=== PATIENT | female | born 1960 | race Two or more races ===

== ENCOUNTER 2017-03-21 10:05 | Emergency (ER) | payer BC ==
[2017-03-21 10:08] VITALS: TEMP 97.5; BMI 35.7
--- NOTE | 2017-03-21 10:46 | PDOC ---
History of Present Illness - General History Source: Patient, Old Records Exam Limitations: No Limitations <Coy Calderónfany - Last Filed: 03/21/17 15:08> - General History Source: Patient Exam Limitations: No Limitations - History of Present Illness Initial Comments: 03/21/17 11:35 The patient is a 56 year old female with a significant past medical history of diverticulosis, asthma (has home pumps), surgical history of hysterectomy, who presents to the ER with persistent nausea, vomiting, and diarrhea for one week and rash for two days. Patient states she went to [facility] seven days ago for vomiting and diarrhea where she had an abdominal CT done and was diagnosed with diverticulosis. Patient was given Zofran and flagyl to take home. She states that the diarrhea improved but she developed rash along the upper extremity, back, and pubic area. Patient states her vomiting is yellow in color with no blood. Patient also complains of associated epigastric pain but is not able to describe the pain. Patient admits the epigastric pain is alleviated while supine. Denies hematochezia, hematemesis Denies fever, chills, cough Denies lightheadedness Denies chest pain Social Hx: Denies cigarette use, alcohol use, or drug use <AfiaElizabeth - Last Filed: 03/21/17 15:16> - General Chief Complaint: Pain Stated Complaint: ABD PAIN Time Seen by Provider: 03/21/17 10:40 Past History - Past Medical History Asthma: Yes - Psycho/Social/Smoking Cessation Hx Suicidal Ideation: No Smoking History: Never smoked Hx Alcohol Use: No Drug/Substance Use Hx: No <Ashlyn Calderón - Last Filed: 03/21/17 15:08> <Elizabeth Oreilly - Last Filed: 03/21/17 15:16> - Past Medical History Allergies/Adverse Reactions: Allergies Allergy/AdvReac Type Severity Reaction Status Date / Time No Known Allergies Allergy Verified 03/21/17 10:08 Home Medications: Ambulatory Orders Levofloxacin [Levaquin -] 500 mg PO DAILY #14 tablet 03/21/17 Metronidazole [Flagyl -] 500 mg PO TID #21 tablet 03/21/17 Review of Systems - Review of Systems Able to Perform ROS?: Yes Comments:: 03/21/17 11:35 GENERAL/CONSTITUTIONAL: No fever or chills. No weakness. HEAD, EYES, EARS, NOSE AND THROAT: No change in vision. No ear pain or discharge. No sore throat. CARDIOVASCULAR: No chest pain or shortness of breath. RESPIRATORY: No cough, wheezing, or hemoptysis. GASTROINTESTINAL: (+) nausea (+) vomiting (+) diarrhea. No constipation. GENITOURINARY: No dysuria, frequency, or change in urination. MUSCULOSKELETAL: No joint or muscle swelling or pain. No neck or back pain. SKIN: (+) rash NEUROLOGIC: No headache, vertigo, loss of consciousness, or change in strength/ sensation. ENDOCRINE: No increased thirst. No abnormal weight change. HEMATOLOGIC/LYMPHATIC: No anemia, easy bleeding, or history of blood clots. ALLERGIC/IMMUNOLOGIC: No hives or skin allergy. <Elizabeth Oreilly - Last Filed: 03/21/17 15:16> *Physical Exam - Vital Signs Last Vital Signs Temp Pulse Resp BP Pulse Ox 97.5 F L 70 18 130/73 98 03/21/17 10:06 03/21/17 10:06 03/21/17 10:06 03/21/17 10:06 03/21/17 10:06 <Ashlyn Calderón - Last Filed: 03/21/17 15:08> - Vital Signs Last Vital Signs Temp Pulse Resp BP Pulse Ox 97.5 F L 70 18 130/73 98 03/21/17 10:06 03/21/17 10:06 03/21/17 10:06 03/21/17 10:06 03/21/17 10:06 - Physical Exam Comments: 03/21/17 11:37 GENERAL: Morbidly obese. Awake, alert, and fully oriented, in no acute distress HEAD: No signs of trauma EYES: PERRLA, EOMI, sclera anicteric, conjunctiva clear ENT: Auricles normal inspection, hearing grossly normal, nares patent, oropharynx clear without exudates. Moist mucosa NECK: Normal ROM, supple, no lymphadenopathy, JVD, or masses LUNGS: Breath sounds equal, clear to auscultation bilaterally. No wheezes, and no crackles HEART: Regular rate and rhythm, normal S1 and S2, no murmurs, rubs or gallops ABDOMEN: Tenderness to the LLQ and epigastric region. Soft, normoactive bowel sounds. No guarding, no rebound. No masses EXTREMITIES: Normal range of motion, no edema. No clubbing or cyanosis. No cords, erythema, or tenderness NEUROLOGICAL: Cranial nerves II through XII grossly intact. Normal speech, normal gait SKIN: Warm, Dry, normal turgor, no rashes or lesions noted. <Elizabeth Oreilly - Last Filed: 03/21/17 15:16> ED Treatment Course - LABORATORY CBC & Chemistry Diagram: 03/21/17 11:00 03/21/17 11:00 <Ashlyn Calderón - Last Filed: 03/21/17 15:08> - LABORATORY CBC & Chemistry Diagram: 03/21/17 11:00 03/21/17 11:00 <CatrinaElizabeth nobles - Last Filed: 03/21/17 15:16> Medical Decision Making - Medical Decision Making 03/21/17 10:47 56-year-old female with history of asthma and recent diagnosis of diverticulosis 8 days ago presents to the emergency Department with complaints of persistent epigastric pain, nausea, vomiting, diarrhea. The patient nearly completed a course of Flagyl. Differential diagnosis includes but is not limited to: Diverticulitis, pancreatitis, gallbladder disease, atypical presentation of ACS, dehydration, toxic/metabolic derangement. Plan: 1. Labs 2. EKG 3. Chest x-ray 4. IV fluids for hydration 5. Observe and reevaluate 03/21/17 15:09 Addendum: The labs are reviewed and are noted in the EMR. The white blood cell count is normal. The urine has, red cells and white cells. The CT scan of the abdomen and pelvis shows focal area of diverticulitis. The patient has been on a course of Flagyl therefore I will add Levaquin to the regimen. I will have the patient follow-up with her primary care physician and return to the ED if her symptoms persist, worsen, or new symptoms arise. <Ashlyn Calderón - Last Filed: 03/21/17 15:08> *DC/Admit/Observation/Transfer - Discharge Dispostion Admit: No - Attestations Physician Attestion: 03/21/17 10:49 I, Dr. Ashlyn Calderón, attest that the scribes documentation that appears above has been prepared under my direction and personally reviewed by me in its entirety. I confirmed that the note above accurately reflects all work, treatment, procedures, and medical decision-making performed by me. <Ashlyn Calderón - Last Filed: 03/21/17 15:08> - Attestations Scribe Attestion: 03/21/17 11:46 Documentation prepared by Elizabeth Oreilly, acting as medical physics professor for Ashlyn Calderón MD. <Elizabeth Oreilly - Last Filed: 03/21/17 15:16> Diagnosis at time of Disposition: Epigastric abdominal pain, Vomiting and diarrhea, Diverticulitis - Prescriptions Prescriptions: Metronidazole [Flagyl -] 500 mg PO TID #21 tablet Levofloxacin [Levaquin -] 500 mg PO DAILY #14 tablet - Referrals Referrals: Tiffany Snow [Primary Care Provider] - - Patient Instructions Printed Discharge Instructions: DI for Diverticulitis, DI for Urinary Tract Infection (UTI) Additional Instructions: You're being treated for diabetes to kill colitis as well as a urinary tract infection. Levaquin 500 mg 1 tablet daily for 2 weeks is being added to your antibiotic regimen. There will be an additional course of Flagyl 500 mg three times daily for 1 week. Follow-up with your primary care physician within the next week and return to the emergency department if your symptoms persist, worsen, or new symptoms arise.
[2017-03-21] MEDS ORDERED: SODIUM CHLORIDE 1,000 ML IV STA (10:47)
[2017-03-21 11:35] LABS: URINE APPEARANCE SLCLOUDY; URINE BILIRUBIN NEGATIVE (NEGATIVE); URINE COLOR AMBER; URINE GLUCOSE (UA) NEGATIVE (NEGATIVE); URINE KETONE NEGATIVE (NEGATIVE); URINE NITRITE NEGATIVE (NEGATIVE); URINE UROBILINOGEN 2.0 E.U/dl E.U./dl (0.2-1.0)
[2017-03-21 11:38] LABS: URINE BLOOD 1+ (NEGATIVE); URINE LEUK ESTERASE TRACE (NEGATIVE); URINE PROTEIN 1+ (NEGATIVE)
[2017-03-21 11:39] LABS: BASOPHIL 0.4 % (0-2.0); EOSINOPHIL 1.1 % (0-4.5); MCH 27.7 pg (25.7-33.7); MEAN CELL VOLUME 83.9 fl (80-96); MEAN PLT VOLUME 9.2 fl (7.5-11.1); NEUTROPHILS 65.9 % (42.8-82.8); PLATELET COUNT 240 K/MM3 (134-434); RDW 13.9 % (11.6-15.6); WHITE BLOOD COUNT 5.6 K/mm3 (4.0-10.0)
[2017-03-21 11:41] LABS: MAGNESIUM 2.4 mg/dL (1.8-2.4); PHOSPHOROUS 2.9 mg/dL (2.5-4.9)
[2017-03-21 11:42] LABS: ALBUMIN 3.2 g/dl (3.4-5.0); ANION GAP 6 (8-16); BILIRUBIN,TOTAL 0.4 mg/dL (0.2-1.0); CALCIUM 8.2 mg/dL (8.5-10.1); CO2 33 mmol/L (21-32); COCKROFT - GAULT 157.3435; CREATININE 0.6 mg/dL (0.55-1.02); GLUCOSE,RANDOM 92 mg/dL (74-106); SGOT/AST 42 U/L (15-37); SGPT/ALT 56 U/L (12-78); TOT PROT 6.3 g/dl (6.4-8.2)
[2017-03-21 11:45] LABS: ALK PHOS 128 U/L (45-117); TROPONIN I < 0.02 ng/ml (0.00-0.05)
[2017-03-21 11:46] LABS: URINE BACTERIA FEW /hpf (NONE SEEN); URINE HYALINE CAST 1 /lpf; URINE MUCUS MODERATE; URINE RBC 5 /hpf (0-3); URINE WBC 3 /hpf (3-5)
--- NOTE | 2017-03-21 12:59 | EKG ---
Test Reason : Blood Pressure : / mmHG Vent. Rate : 054 BPM Atrial Rate : 054 BPM P-R Int : 154 ms QRS Dur : 082 ms QT Int : 456 ms P-R-T Axes : 037 043 015 degrees QTc Int : 432 ms SINUS BRADYCARDIA OTHERWISE NORMAL ECG WHEN COMPARED WITH ECG OF 26-FEB-2011 09:31, NO SIGNIFICANT CHANGE WAS FOUND Confirmed by DENISE MACIAS MD ([id number]) on 03/21/2017 12:59:20 PM Referred By: Confirmed By:DENISE MACIAS MD
[2017-03-21] MEDS ORDERED: LEVOFLOXACIN 500 MG TABLET (FP) PO ONE (15:08)
[2017-03-21] MEDS ORDERED: LEVOFLOXACIN 250 MG TABLET (FP) ONE (15:22)
[2017-03-21 15:28] VITALS: BP 132/68; PULSE 75
== END 2017-03-21 15:28 | disposition home or self-care (01) ==
LOC: JER 10:05
PROC: 3E0337Z Introduction of Electrolytic and Water Balance Substance into Peripheral Vein, Percutaneous Approach (ICD-10-PCS; principal; 2017-03-21)
DX: K57.20 Diverticulitis of large intestine with perforation and abscess without bleeding (principal); N39.0 Urinary tract infection, site not specified; R21 Rash and other nonspecific skin eruption; J45.909 Unspecified asthma, uncomplicated
CPT/HCPCS: 36415; 71010-TC; 74176-TC; 80053; 81003; 81015; 82550; 83690; 83735; 84100; 84484; 85025; 93005; 93010; 96360; 99284-25

== ENCOUNTER 2018-10-03 19:11 | Emergency (ER) | payer BC ==
[2018-10-03 20:02] VITALS: BP 131/80; PULSE 72; TEMP 97.8; BMI 36.6
--- NOTE | 2018-10-03 20:03 | PDOC ---
Rapid Medical Evaluation Time Seen by Provider: 10/03/18 20:00 Medical Evaluation: Allergies Allergy/AdvReac Type Severity Reaction Status Date / Time No Known Allergies Allergy Verified 10/03/18 20:02 Vital Signs Temp Pulse Resp BP Pulse Ox 97.8 F 72 16 131/80 100 10/03/18 20:00 10/03/18 20:00 10/03/18 20:00 10/03/18 20:00 10/03/18 20:00 10/03/18 20:03 Patient c/o: cough, sob intermittent wheezing Patient on brief exam: coarse BS zaynab, vss Patient ordered for: cxr The patient will proceed to the ED Discharge Disposition - Diagnosis Cough - Referrals - Patient Instructions - Post Discharge Activity
[2018-10-03] MEDS ORDERED: DEXAMETHASONE LIQUID 0.5 MG/5 ML 240 ML BULK BOTTLE PO ONE (20:21)
--- NOTE | 2018-10-03 20:22 | PDOC ---
History of Present Illness - General Stated Complaint: cough Time Seen by Provider: 10/03/18 20:00 - History of Present Illness Initial Comments: 10/03/18 20:22 58-year-old female with a past medical history significant for asthma presents for 2 weeks of productive cough without systemic symptoms Past History - Past Medical History Allergies/Adverse Reactions: Allergies Allergy/AdvReac Type Severity Reaction Status Date / Time No Known Allergies Allergy Verified 10/03/18 20:02 Home Medications: Ambulatory Orders Albuterol Sulfate Inhaler - [Ventolin HFA Inhaler -] 1 - 2 inh PO Q4H #1 inhaler 10/03/18 Albuterol Sulfate Inhaler - [Ventolin Hfa Inhaler -] 1 - 2 inh PO QID 10/03/18 Fluticasone Propionate [Flovent Diskus] 100 mcg IH ASDIR 10/03/18 Asthma: Yes - Suicide/Smoking/Psychosocial Hx Smoking History: Never smoked Have you smoked in the past 12 months: No Information on smoking cessation initiated: No Hx Alcohol Use: No Drug/Substance Use Hx: No Review of Systems - Review of Systems Constitutional: No: Fever Respiratory: Yes: Cough, Shortness of Breath, Wheezing *Physical Exam - Vital Signs Last Vital Signs Temp Pulse Resp BP Pulse Ox 97.8 F 72 16 131/80 100 10/03/18 20:00 10/03/18 20:00 10/03/18 20:00 10/03/18 20:00 10/03/18 20:00 - Physical Exam Comments: 10/03/18 20:22 HEAD: NC/AT EYES: Conjuntiva clear Ears: Canals and TM's normal NOSE: No d/c THROAT: Moist mucous membrances, oral pharanx clear, uvula midline NECK: Supple without adenopathy CARDIAC: S1 S2 LUNGS: Mild bibasilar wheezing ABDOMEN: Soft NT ND MS: Full ROM in all joints without edema NEUROLOGIC: No gross sensory or motor deficits, NVID SKIN: Normal color and temperature no lesions or rashes Moderate Sedation - Procedure Monitoring Vital Signs: Procedure Monitoring Vital Signs Temperature 97.8 F 10/03/18 20:00 Pulse Rate 72 10/03/18 20:00 Respiratory Rate 16 10/03/18 20:00 Blood Pressure 131/80 10/03/18 20:00 O2 Sat by Pulse Oximetry (%) 100 10/03/18 20:00 Medical Decision Making - Medical Decision Making 10/03/18 21:46 No wheezing after for DuoNeb nebs and Decadron patient safe to be discharged home. Ferny sent to pharmacy pulmonology follow-up given *DC/Admit/Observation/Transfer Diagnosis at time of Disposition: Cough, Acute asthma exacerbation - Discharge Dispostion Disposition: HOME Condition at time of disposition: Stable - Referrals Referrals: Vega Orozco MD [Staff Physician] - - Patient Instructions Printed Discharge Instructions: DI for Asthma -- Adult Additional Instructions: Return to the emergency room should symptoms worsen or go unresolved. You are given a dose of steroids in the emergency room tonight he should not require any more steroids for at least a week. Ferny was sent here pharmacy. Please follow-up with pulmonology for further evaluation and treatment options. - Post Discharge Activity
[2018-10-03] MEDS: ALBUTEROL SO4 2.5/IPRATROPIUM 0.5 INH SOL 3 ML VIAL.NEB. NEB SCH ×4 (20:32→21:10)
[2018-10-03] MEDS ORDERED: DEXAMETHASONE SOD PHOSPHATE 10 MG/1 ML VIAL ONE (21:05)
[2018-10-03] MEDS ORDERED: ALBUTEROL SO4 2.5/IPRATROPIUM 0.5 INH SOL 3 ML VIAL.NEB. NEB ONE (21:06)
== END 2018-10-03 21:56 | disposition home or self-care (01) ==
LOC: JERFT 19:11
PROC: 3E0F7GC Introduction of Other Therapeutic Substance into Respiratory Tract, Via Natural or Artificial Opening (ICD-10-PCS; principal; 2018-10-03)
DX: J45.901 Unspecified asthma with (acute) exacerbation (principal)
CPT/HCPCS: 71046-TC-FY; 94640; 99281-25

== ENCOUNTER 2019-09-10 22:23 | Inpatient (IN) | payer BC, OTHER ==
[2019-09-10] MEDS ORDERED: ACETAMINOPHEN 1000 MG/100 ML VIAL (NON FORMULARY) IVPB ONE (22:43)
--- NOTE | 2019-09-10 22:46 | PDOC ---
History of Present Illness - General Chief Complaint: Injury Stated Complaint: FALL Time Seen by Provider: 09/10/19 22:31 History Source: Patient, Other (Son) Exam Limitations: No Limitations - History of Present Illness Initial Comments: 59 year old female with PMH asthma, left knee replacement (X4 years ago) presented to ED with son for left knee pain s/p injury today. Pt reported she was walking in the hallway, felt her left knee give out beneath her, causing her to lunge forward and hit her knee on the wall. She described a twisting motion as well. She denied head injury, LOC, vomiting, prodromal chest pain, prodromal shortness of breath, prodromal lightheadedness. She reported she feels the fall was secondary to her knee giving out. She denied neck pain, back pain, abdominal pain, chest pain, upper extremity pain. ROS General: denied fever, chills, generalized weakness. HEENT: denied sore throat, rhinorrhea, ear pain. Neck: denied neck pain. Cardiovascular: denied chest pain, palpitations, syncope, diaphoresis. Respiratory: denied shortness of breath, cough, sputum production, hemoptysis. Gastrointestinal: denied abdominal pain, nausea, vomiting, diarrhea, constipation, blood in stool. Genitourinary: denied dysuria, increased urinary frequency, hematuria, urinary incontinence, flank pain. Back: denied back pain. Musculoskeletal: admitted to knee pain. Neurological: denied headache, dizziness, numbness, tingling, weakness. Integumentary: denied rash, laceration, abrasion. Hematologic/Lymphatic: denied bruising or bleeding. PE Constitutional: Well-nourished, Well-developed, appearing stated age. obese. Airway: intact Breathing: bilateral breath sounds Circulation: 2+ carotid pulse B/L HEENT: head is normocephalic, atraumatic. No facial bones tenderness to palpation. No caputo sign. No raccoon eyes. EOMI. PERRLA. Neck: supple. Full ROM. no midline c-spine tenderness to palpation. No step offs. Cardiovascular: regular heart rhythm. no murmurs. no pericardial friction rub. Chest wall: no seatbelt sign. No tenderness to palpation of anterior chest wall. No deformity to anterior chest wall. Respiratory: clear to auscultation bilaterally. no crackles, rhonchi or wheezing. no stridor. Gastrointestinal: soft, nontender. normal bowel sounds. no rebound, guarding, masses. No ecchymoses. Back: no midline T-spine or L-spine tenderness to palpation. No step offs. Pelvis: lower extremities equal in length without external rotation. tenderness to palpation of left knee. tenderness to palpation of left hip. no tenderness to palpation of right hip or knee. no tenderness along left femur area. 2+ DSP bilaterally. Extremities: peripheral pulses intact. no lower extremity pitting edema. Neurological: CN 2-12 grossly intact. moves all four extremities. Psych: awake, alert, oriented x3. follows commands. answers questions appropriately. Past History - Past Medical History Allergies/Adverse Reactions: Allergies Allergy/AdvReac Type Severity Reaction Status Date / Time No Known Allergies Allergy Verified 10/03/18 20:02 Home Medications: Ambulatory Orders Albuterol Sulfate Inhaler - [Ventolin HFA Inhaler -] 1 - 2 inh PO Q4H #1 inhaler 10/03/18 Albuterol Sulfate Inhaler - [Ventolin Hfa Inhaler -] 1 - 2 inh PO QID 10/03/18 Fluticasone Propionate [Flovent Diskus] 100 mcg IH ASDIR 10/03/18 Asthma: Yes COPD: No - Psycho Social/Smoking Cessation Hx Smoking History: Unknown if ever smoked Have you smoked in the past 12 months: No Hx Alcohol Use: No Drug/Substance Use Hx: No *Physical Exam - Vital Signs Last Vital Signs Temp Pulse Resp BP Pulse Ox 98.5 F 66 18 147/71 100 09/10/19 22:30 09/10/19 22:30 09/10/19 22:30 09/10/19 22:30 09/10/19 22:30 ED Treatment Course - LABORATORY CBC & Chemistry Diagram: 09/10/19 22:57 09/10/19 22:57 - RADIOLOGY Radiology Studies Ordered: Category Date Time Status CHEST - PA [RAD] Stat Radiology 09/10/19 22:45 Ordered KNEE 3 POS-LEFT [RAD] Stat Radiology 09/10/19 22:45 Ordered PELVIS [RAD] Stat Radiology 09/10/19 22:45 Ordered Medical Decision Making - Medical Decision Making 59 year old female with above PMH presented to ED for left knee pain s/p mechanical injury. Initial Vital Signs Temp Pulse Resp BP Pulse Ox 98.5 F 66 18 147/71 100 09/10/19 22:30 09/10/19 22:30 09/10/19 22:30 09/10/19 22:30 09/10/19 22:30 Afebrile. No tachycardia. No tachypnea. Mild hypertension. No hypoxia on room air. Labs ordered: CBC, CMP, coags, T&S Imaging ordered: CXR, Pelvis XR, left knee XR Medications ordered: tylenol IV 09/10/19 23:34 CBC WBC 9.5 K/mm3 (4.0-10.0) 09/10/19 22:57 RBC 4.78 M/mm3 (3.60-5.2) 09/10/19 22:57 Hgb 13.7 GM/dL (10.7-15.3) 09/10/19 22:57 Hct 41.3 % (32.4-45.2) 09/10/19 22:57 MCV 86.4 fl (80-96) 09/10/19 22:57 MCH 28.6 pg (25.7-33.7) 09/10/19 22:57 MCHC 33.1 g/dl (32.0-36.0) 09/10/19 22:57 RDW 13.6 % (11.6-15.6) 09/10/19 22:57 Plt Count 239 K/MM3 (134-434) 09/10/19 22:57 MPV 9.5 fl (7.5-11.1) 09/10/19 22:57 Absolute Neuts (auto) 6.6 K/mm3 (1.5-8.0) 09/10/19 22:57 Neutrophils % 68.8 % (42.8-82.8) 09/10/19 22:57 Lymphocytes % 19.5 % (8-40) 09/10/19 22:57 Monocytes % 8.7 % (3.8-10.2) 09/10/19 22:57 Eosinophils % 2.4 % (0-4.5) D 09/10/19 22:57 Basophils % 0.6 % (0-2.0) 09/10/19 22:57 Nucleated RBC % 0 % (0-0) 09/10/19 22:57 No leukocytosis. No anemia. INR, PTT INR 1.03 (0.83-1.09) 09/10/19 22:57 09/10/19 23:45 CMP Sodium 143 mmol/L (136-145) 09/10/19 22:57 Potassium 4.2 mmol/L (3.5-5.1) 09/10/19 22:57 Chloride 106 mmol/L (98-107) 09/10/19 22:57 Carbon Dioxide 33 mmol/L (21-32) H 09/10/19 22:57 Anion Gap 4 MMOL/L (8-16) L 09/10/19 22:57 BUN 15.9 mg/dL (7-18) 09/10/19 22:57 Creatinine 0.9 mg/dL (0.55-1.3) 09/10/19 22:57 Est GFR (CKD-EPI)AfAm 79.98 09/10/19 22:57 Est GFR (CKD-EPI)NonAf 69.01 09/10/19 22:57 Random Glucose 122 mg/dL (74-106) H 09/10/19 22:57 Calcium 9.0 mg/dL (8.5-10.1) 09/10/19 22:57 Total Bilirubin 0.4 mg/dL (0.2-1) 09/10/19 22:57 AST 25 U/L (15-37) 09/10/19 22:57 ALT 31 U/L (13-61) 09/10/19 22:57 Alkaline Phosphatase 126 U/L (45-117) H 09/10/19 22:57 Total Protein 6.8 g/dl (6.4-8.2) 09/10/19 22:57 Albumin 3.6 g/dl (3.4-5.0) 09/10/19 22:57 09/10/19 23:49 XR shows distal femur fracture. Will send pt back to XR for femur XR and tib/fib XR. 09/10/19 23:59 Dr. Remberto camacho. Pt signed out to Dr. Holguin. Discharge - Discharge Information Problems reviewed: Yes Clinical Impression/Diagnosis: Knee pain - Follow up/Referral Referrals: Tiffany Snow [Primary Care Provider] - - Patient Discharge Instructions - Post Discharge Activity
--- NOTE | 2019-09-10 22:48 | PDOC ---
Attending Attestation - Resident Resident Name: TaylerOdalis - ED Attending Attestation I have performed the following: I have examined & evaluated the patient, The case was reviewed & discussed with the resident, I agree w/resident's findings & plan, Exceptions are as noted - HPI HPI: 09/10/19 22:47 59-year-old female brought in by ambulance after she had a mechanical fall this evening. She has complaint of left knee pain. HPI she was walking and her knee gave out and she fell and hit her leg into a wall She had left knee replacement in the past 09/10/19 22:52 - Physicial Exam PE: 09/10/19 22:48 Well-nourished well-developed 59-year-old female in moderate distress with left knee pain Head normocephalic atraumatic Neck no midline cervical vertebral tenderness Lungs clear to auscultation bilaterally CVS regular rate and rhythm S1-S2 Abdomen protuberant, nontender Extremities there is severe tenderness over left knee,a well healed surgical scar over left knee, no ankle deformity,no hip pain skin no lacerations neuro axox3 09/11/19 01:13 - Medical Decision Making 09/10/19 23:50 59 yo female with Left knee replacement in the past had a mechanical fall and hit her knee radiograph reveals distal femur fracture/intact hardwire 09/11/19 01:14 Impression distal femur fracture/prior Left knee replacement Dr. Sr is orthopedist and the patient will be admitted to [facility] pt placed in knee immobilizer
[2019-09-10] MEDS ORDERED: ACETAMINOPHEN INJECTION 100 ML IVPB ONE (23:02)
[2019-09-10 23:15] LABS: BASO % 0.6 % (0-2.0); EOS % 2.4 % (0-4.5); HEMATOCRIT 41.3 % (32.4-45.2); HEMOGLOBIN 13.7 GM/dL (10.7-15.3); LYMPH % 19.5 % (8-40); MCH 28.6 pg (25.7-33.7); MCHC 33.1 g/dl (32.0-36.0); MEAN CELL VOLUME 86.4 fl (80-96); MEAN PLT VOLUME 9.5 fl (7.5-11.1); MONO % 8.7 % (3.8-10.2); NEUT % 68.8 % (42.8-82.8); PLATELET COUNT 239 K/MM3 (134-434); RBC 4.78 M/mm3 (3.60-5.2); RDW 13.6 % (11.6-15.6); WHITE BLOOD COUNT 9.5 K/mm3 (4.0-10.0)
[2019-09-10 23:26] LABS: INR 1.03 (0.83-1.09); PROTHROMBIN TIME (PATIENT) 12.1 SEC (9.7-13.0)
[2019-09-10 23:43] LABS: ALBUMIN 3.6 g/dl (3.4-5.0); BILIRUBIN,TOTAL 0.4 mg/dL (0.2-1); BLOOD UREA NITROGEN 15.9 mg/dL (7-18); CREATININE 0.9 mg/dL (0.55-1.3); POTASSIUM 4.2 mmol/L (3.5-5.1); TOT PROT 6.8 g/dl (6.4-8.2)
--- NOTE | 2019-09-10 23:43 | PDOC ---
*Physical Exam - Vital Signs Last Vital Signs Temp Pulse Resp BP Pulse Ox 98.5 F 66 18 147/71 100 09/10/19 22:30 09/10/19 22:30 09/10/19 22:30 09/10/19 22:30 09/10/19 22:30 ED Treatment Course - LABORATORY CBC & Chemistry Diagram: 09/10/19 22:57 09/10/19 22:57 - ADDITIONAL ORDERS Additional order review: Laboratory Results 09/10/19 09/10/19 22:57 22:57 PT with INR 12.10 INR 1.03 PTT (Actin FS) 34.5 09/10/19 22:57 RBC 4.78 MCV 86.4 MCHC 33.1 RDW 13.6 MPV 9.5 Neutrophils % 68.8 Lymphocytes % 19.5 Monocytes % 8.7 Eosinophils % 2.4 D Basophils % 0.6 - Medications Given in the ED: ED Medications Discontinued Medications Generic Name Dose Route Start Last Admin Trade Name Marceloq PRN Reason Stop Dose Admin Acetaminophen 1,000 mg 09/10/19 22:43 09/10/19 23:00 Ofirmev Injection - IVPB 09/10/19 22:44 1,000 mg ONCE ONE Administration Medical Decision Making - Medical Decision Making 09/10/19 23:[address] Lester. Will f/u X rays. 09/10/19 23:50 Distal femur fracture on X ray. Will get add on tib/fib, femur X rays, give morphine. 09/10/19 23:55 L knee replacement performed 4 years ago at [facility] by Dr. Ramirez. 09/11/19 00:[address] Sr, states to put patient in knee immobilizer and admit her. Discharge - Discharge Information Problems reviewed: Yes Clinical Impression/Diagnosis: Knee pain, Femur fracture, left - Follow up/Referral Referrals: Tiffany Snow [Primary Care Provider] - - Patient Discharge Instructions - Post Discharge Activity
[2019-09-10] MEDS ORDERED: morphine CARPU-JECT 4 MG/1 ML DISP.SYRIN IVPUSH ONE (23:49)
[2019-09-11] MEDS ORDERED: morphine SULFATE 4 MG/ML VIAL ONE (00:52)
--- NOTE | 2019-09-11 01:29 | HP ---
Admitting History and Physical - Primary Care Physician PCP: Dr. Lainez - Admission Chief Complaint: s/p fall History of Present Illness: 59 year old female with PMH asthma, left knee replacement (X4 years ago) arrived to ED s/p fall with pain,swelling to left knee. According to son at bedside patient was walking in her hallway when " she felt her knee gave out" which caused patient to lunge forward and hit her knee against the wall. The knee bent in twisting motion. Patient denies hit her head, no LOC, headache, dizziness, syncope. Patient denies CP/SOB, N/V, neck pain, back pain, upper extremity pain. History Source: Patient, Family Member Limitations to Obtaining History: No Limitations - Past Medical History Pulmonary: Yes: Asthma - Past Surgical History Past Surgical History: Yes: Joint Replacement Additional Past Surgical History: left knee replacement (X4 years ago) - Smoking History Smoking history: Unknown if ever smoked Have you smoked in the past 12 months: No - Alcohol/Substance Use Hx Alcohol Use: No History of Substance Use: reports: None - Social History Usual Living Arrangement: Yes: Alone ADL: Independent History of Recent Travel: No Home Medications - Allergies Allergies/Adverse Reactions: Allergies Allergy/AdvReac Type Severity Reaction Status Date / Time No Known Allergies Allergy Verified 10/03/18 20:02 - Home Medications Home Medications: Ambulatory Orders Albuterol Sulfate Inhaler - [Ventolin HFA Inhaler -] 1 - 2 inh PO Q4H #1 inhaler 10/03/18 Fluticasone Propionate [Flovent Diskus] 100 mcg IH ASDIR 10/03/18 Family Medical History Family History: Denies Review of Systems - Review of Systems Constitutional: reports: No Symptoms Eyes: reports: No Symptoms HENT: reports: No Symptoms Neck: reports: No Symptoms Cardiovascular: reports: No Symptoms Respiratory: reports: No Symptoms Gastrointestinal: reports: No Symptoms Genitourinary: reports: No Symptoms Musculoskeletal: reports: Extremity Pain (left knee pain), Joint Pain, Joint Swelling (left knee) Neurological: reports: No Symptoms Endocrine: reports: No Symptoms Hematology/Lymphatic: reports: No Symptoms Psychiatric: reports: No Symptoms Physical Examination Vital Signs: Vital Signs Temperature 98.5 F 09/10/19 22:30 Pulse Rate 73 09/11/19 00:50 Respiratory Rate 18 09/10/19 22:30 Blood Pressure 130/70 09/11/19 00:50 O2 Sat by Pulse Oximetry (%) 100 09/10/19 22:30 Constitutional: Yes: Calm, Obese Eyes: Yes: Conjunctiva Clear, EOM Intact HENT: Yes: Atraumatic, Normocephalic Neck: Yes: Supple, Trachea Midline Cardiovascular: Yes: Regular Rate and Rhythm Respiratory: Yes: Regular, CTA Bilaterally Gastrointestinal: Yes: Normal Bowel Sounds, Soft Musculoskeletal: Yes: Joint Stiffness ( tenderness to palpation of left knee), Joint Swelling, Muscle Pain Edema: No Peripheral Pulses WNL: Yes Integumentary: Yes: WNL Neurological: Yes: Alert, Oriented Labs: CBC, BMP 09/10/19 22:57 09/10/19 22:57 Imaging - Results Chest X-ray: Report Reviewed (no acute consolidation noted) X-ray: Report Reviewed (XR shows distal femur fracture) Problem List - Problems (1) Femur fracture, left Code(s): S72.92XA - UNSP FRACTURE OF LEFT FEMUR, INIT ENCNTR FOR CLOSED FRACTURE (2) Status post fall Code(s): Z91.81 - HISTORY OF FALLING (3) Asthma Code(s): J45.909 - UNSPECIFIED ASTHMA, UNCOMPLICATED (4) Knee pain Code(s): M25.569 - PAIN IN UNSPECIFIED KNEE Assessment/Plan 59 year old female with PMH asthma, left knee replacement (X4 years ago) arrived to ED s/p fall with pain,swelling to left knee. Patient had L knee replacement performed 4 years ago at [facility] by Dr. Ramirez, xray done in ED shows distal femur fracture on X ray. # Left distal femur fracture #S/p mechanical fall with injury - XR shows distal femur fracture - in ED given morphine IV, IV tylenol - ED resident spoke with ortho, knee immobilizer in place - place on NPO, until ortho follow up - insert Zhang due to difficulty with mobility - pain management - continue with immobilizer, and elevate extremity - follow up Ortho in AM # Asthma - continue with nebs prn Diet: NPO DVT: Heaprin SQ Visit type - Emergency Visit Emergency Visit: Yes ED Registration Date: 09/11/19 Care time: The patient presented to the Emergency Department on the above date and was hospitalized for further evaluation of their emergent condition. - New Patient This patient is new to me today: Yes Date on this admission: 09/11/19 - Critical Care Critical Care patient: No
[2019-09-11] MEDS ORDERED: ALBUTEROL SO4 0.083% IH SOL 2.5 MG/3 ML VIAL.NEB. NEB PRN (01:43)
[2019-09-11] MEDS ORDERED: IPRATROPIUM BR 0.02% 0.5 MG/2.5 ML VIAL.NEB. NEB PRN (01:43)
[2019-09-11 02:23] LABS: EPI CELLS 3.8 /HPF (0-5/HPF); HYALINE CASTS 6 /lpf (0-8); URINE APPEARANCE CLEAR; URINE BACTERIA 3016.7 /hpf (NEGATIVE); URINE BILIRUBIN NEGATIVE (NEGATIVE); URINE COLOR YELLOW; URINE GLUCOSE (UA) NEGATIVE (NEGATIVE); URINE KETONE NEGATIVE (NEGATIVE); URINE LEUK ESTERASE NEGATIVE (NEGATIVE); URINE NITRITE POSITIVE (NEGATIVE); URINE PROTEIN NEGATIVE (NEGATIVE); URINE RBC 2 /hpf (0-4); URINE WBC 3 /hpf (0-5)
[2019-09-11] MEDS: SODIUM CHLORIDE 1,000 ML IV SCH ×2 (02:39→17:51)
[2019-09-11 03:02] VITALS: BMI 39.4
[2019-09-11] MEDS: HEPARIN NA (PORCINE) 5,000 UNITS/ML 1ML VIAL SQ SCH ×3 (05:37→22:00)
[2019-09-11 07:57] LABS: HEMATOCRIT 37.5 % (32.4-45.2); HEMOGLOBIN 12.4 GM/dL (10.7-15.3); MCH 28.6 pg (25.7-33.7); MCHC 33.1 g/dl (32.0-36.0); MEAN CELL VOLUME 86.4 fl (80-96); MEAN PLT VOLUME 9.5 fl (7.5-11.1); PLATELET COUNT 199 K/MM3 (134-434); RBC 4.34 M/mm3 (3.60-5.2); RDW 13.8 % (11.6-15.6); WHITE BLOOD COUNT 8.3 K/mm3 (4.0-10.0)
[2019-09-11 08:14] LABS: BLOOD UREA NITROGEN 13.2 mg/dL (7-18); CALCIUM 8.2 mg/dL (8.5-10.1); CREATININE 0.7 mg/dL (0.55-1.3)
[2019-09-11] MEDS: MORPHINE SULFATE 2 MG/ML VIAL IVPUSH PRN ×2 (08:37→23:31)
--- NOTE | 2019-09-11 11:12 | PN ---
Progress Note, Physician Chief Complaint: Left femur fracture History of Present Illness: Left femur Xray:Comminuted distal femoral fracture just proximal to the knee replacement. - Current Medication List Current Medications: Active Medications Albuterol Sulfate (Ventolin 0.083% Nebulizer Soln -) 1 amp NEB RQID PRN PRN Reason: SHORT OF BREATH/WHEEZING Heparin Sodium (Porcine) (Heparin -) 5,000 unit SQ TID [place] Last Admin: 09/11/19 05:37 Dose: 5,000 unit Sodium Chloride (Normal Saline -) 1,000 mls @ 75 mls/hr IV ASDIR [place] Last Admin: 09/11/19 02:39 Dose: 75 mls/hr Ceftriaxone Sodium 1 gm/ (Dextrose) 50 mls @ 200 mls/hr IVPB DAILY [facility]; Protocol Ipratropium [place] (Atrovent 0.02% Nebulizer -) 1 amp NEB RQID PRN PRN Reason: WHEEZING Morphine Sulfate (Morphine Sulfate) 1 mg IVPUSH Q6H PRN PRN Reason: PAIN LEVEL 6-10 Last Admin: 09/11/19 08:37 Dose: 1 mg - Objective Vital Signs: Vital Signs Temperature 98.8 F 09/11/19 09:43 Pulse Rate 69 09/11/19 09:43 Respiratory Rate 18 09/11/19 09:43 Blood Pressure 122/59 L 09/11/19 09:43 O2 Sat by Pulse Oximetry (%) 99 09/11/19 09:00 Constitutional: Yes: Well Nourished, No Distress, Calm Cardiovascular: Yes: Regular Rate and Rhythm Respiratory: Yes: Regular Gastrointestinal: Yes: Normal Bowel Sounds, Soft Genitourinary: Yes: WNL Musculoskeletal: Yes: WNL Extremities: Yes: WNL Edema: No Peripheral Pulses WNL: Yes Neurological: Yes: Alert, Oriented Psychiatric: Yes: Alert, Oriented Labs: CBC, BMP 09/11/19 07:15 09/11/19 07:15 INR, PTT INR 1.03 (0.83-1.09) 09/10/19 22:57 Problem List - Problems (1) UTI (urinary tract infection) Assessment/Plan: -UA+ Nitrites -UC pending -Start Rocephin -ID consult Problems reviewed: Yes Code(s): N39.0 - URINARY TRACT INFECTION, SITE NOT SPECIFIED (2) Femur fracture, left Assessment/Plan: -orthopedic consult -Left femur fracture:Comminuted distal femoral fracture just proximal to the knee replacement. Problems reviewed: Yes Code(s): S72.92XA - UNSP FRACTURE OF LEFT FEMUR, INIT ENCNTR FOR CLOSED FRACTURE Assessment/Plan see problem list Pt is medically stable for surgery with acceptable OR risks
[2019-09-11] MEDS ORDERED: cefTRIAXone SODIUM 1 GM VIAL ONE (11:15)
[2019-09-11] MEDS ORDERED: DEXTROSE 5%-WATER - 50 ML IVPB ONE (11:15)
[2019-09-11] MEDS: CEFTRIAXONE 1 GM in DEXTROSE 5%-WATER - 50 ML IVPB SCH (11:18)
--- NOTE | 2019-09-11 12:40 | PN ---
Progress Note (short form) - Note Progress Note: ID CONSULT DICTATED DISTAL L FEMUR FRACTURE UTI AWAIT C/S CONTINUE EMPIRIC [id number]
--- NOTE | 2019-09-11 13:43 | EKG ---
Test Reason : Blood Pressure : / mmHG Vent. Rate : 068 BPM Atrial Rate : 068 BPM P-R Int : 138 ms QRS Dur : 090 ms QT Int : 396 ms P-R-T Axes : 043 043 001 degrees QTc Int : 421 ms SINUS RHYTHM WITH MARKED SINUS ARRHYTHMIA NONSPECIFIC T WAVE ABNORMALITY ABNORMAL ECG WHEN COMPARED WITH ECG OF 21-MAR-2017 11:22, NO SIGNIFICANT CHANGE WAS FOUND Confirmed by MD Chalino, Lester ([id number]) on 09/11/2019 1:42:59 PM Referred By: Lino ACUÑA Confirmed By:Lester Allred MD
--- NOTE | 2019-09-11 15:12 | PN ---
Progress Note (short form) - Note Progress Note: Ortho Full consult to be dictated by Dr. Sr OR tomorrow for revision tkr distal femur replacement NPO after midnight
--- NOTE | 2019-09-11 15:57 | CONS ---
INFECTIOUS DISEASE CONSULTATION DATE OF CONSULTATION: DATE OF DICTATION: 09/11/2019 HISTORY: The patient is a 59-year-old female who was evaluated for possible urinary tract infection. She is status post left total knee replacement 4 years ago at [facility]. She reports that while ambulating in her home she experienced a mechanical fall resulting in trauma to her left lower extremity. She presented to the emergency room where an x-ray showed a comminuted distal left femur fracture prior to the total knee replacement. She was noted on initial evaluation to have pyuria. Concern was raised about possible occult infection, specifically a urinary tract infection, which may have precipitated her weakness and fall. She was empirically treated with ceftriaxone. At the present time, she is awake and responsive. She complains of left lower extremity pain. She has had some urinary frequency. Denies dysuria or hematuria. No complaints of suprapubic or flank pain. She has been afebrile with a normal white blood cell count. PAST MEDICAL HISTORY: Positive for asthma. PAST SURGICAL HISTORY: Status post left total knee replacement. ALLERGIES: No known allergies. LABORATORY DATA: White count 8.3, hematocrit 37.5, platelets 199, creatinine 0.7. Urinalysis 3 white cells. Blood and urine cultures are pending. PHYSICAL EXAMINATION: General: On physical examination, she is awake and alert. She is in moderate distress secondary to left lower extremity pain. Vital Signs: Temperature 98.4, blood pressure 132/74, pulse 72 regular, respirations 20 per minute. HEENT: Sclerae anicteric. Heart: Sounds S1, S2. Lungs: Clear bilaterally. Abdomen: Soft, obese, nontender. Extremities: The left lower extremity is immobilized in a splint. IMPRESSION: 1. Comminuted distal left femur fracture. 2. Urinary tract infection, possible sepsis secondary to urinary tract infection. 3. Status post left total knee replacement 4 years ago. PLAN: Await sepsis workup. Obtain blood cultures. Continue empiric ceftriaxone. Thank you for the kind referral. DAT WALTER M.D. [id number]
--- NOTE | 2019-09-11 18:05 | CONS ---
ORTHOPAEDIC CONSULTATION DATE OF CONSULTATION: 09/11/2019 HISTORY: Patient is a 59-year-old female about 5 years status post a left total knee replacement. Was doing well until she slipped and fell today. Complaining of severe pain in her left thigh and knee region. No significant past medical history. PHYSICAL EXAMINATION: On physical exam, she has a great deal of crepitus and swelling of her distal thigh with marked increased pain with any range of motion of the knee. Her calf is soft and nontender. She is neurovascularly intact. Intact sensation throughout. Good motion of her ankles and toes. Difficulty with hip motion with a great deal of pain in her femur but it appears to be within normal limits. X-rays of the femur and knee reveal a well-seated total knee replacement with a periprosthetic distal femur fracture a few centimeters above the femoral component but with comminution it appears going down toward the component. The tibial component and patellar component appear to be intact. IMPRESSION: Left distal femur periprosthetic fracture comminuted. Risks, benefits, and alternatives discussed with the patient in great detail. As the fracture is very distal and comminuted, I do not believe we can fixate this fracture appropriately. If, therefore, recommend the patient for a revision total knee replacement with a distal femoral replacement stem to bypass the fracture. Patient will be booked for this procedure tomorrow. Preoperative clearance will be obtained today. She will be n.p.o. past midnight tonight for her surgery tomorrow. SAVITA IRELAND M.D. [id number]
[2019-09-12] MEDS: SODIUM CHLORIDE 1,000 ML IV SCH ×2 (01:45→13:39)
[2019-09-12] MEDS: HEPARIN NA (PORCINE) 5,000 UNITS/ML 1ML VIAL SQ SCH ×3 (06:03→21:45)
[2019-09-12] MEDS ORDERED: ceFAZolin SODIUM 1 GM VIAL ONE ×2 (07:33→07:39)
[2019-09-12] MEDS ORDERED: TRANEXAMIC ACID 1000 MG/10 ML VIAL ONE (07:39)
[2019-09-12] MEDS ORDERED: VANCOMYCIN 1,000 MG VIAL (RESTRICTED TO ID ONLY) ONE (07:39)
[2019-09-12] MEDS ORDERED: ONDANSETRON 4 MG/2 ML VIAL ONE (07:39)
[2019-09-12] MEDS ORDERED: DEXAMETHASONE SOD PHOSPHATE 4 MG/1 ML VIAL ONE (07:39)
[2019-09-12] MEDS ORDERED: LIDOCAINE HCL/PF 2% SDV 5ML VIAL ONE (07:39)
[2019-09-12] MEDS ORDERED: MIDAZOLAM HCL 2 MG/2 ML SINGLE DOSE VIAL ONE ×4 (07:40→08:03)
[2019-09-12] MEDS ORDERED: PROPOFOL 20 ML ONE ×3 (07:40)
[2019-09-12] MEDS ORDERED: SUCCINYLCHOLINE CHLORIDE 200 MG/10 ML SYRINGE ONE (07:40)
[2019-09-12] MEDS ORDERED: BUPIVACAINE HCL/PF 0.5% (5 MG/ML) 30 ML VIAL IJ ONE ×2 (08:02→08:35)
[2019-09-12] MEDS ORDERED: BUPIVACAINE LIPOSOME/PF (EXPAREL) 266 MG/20 ML VIAL ONE (08:02)
[2019-09-12] MEDS ORDERED: ceFAZolin 2 GRAM PREMIX BAG IVPB ONE (08:40)
[2019-09-12] MEDS: CEFTRIAXONE 1 GM in DEXTROSE 5%-WATER - 50 ML IVPB SCH (10:05)
[2019-09-12] MEDS ORDERED: VANCOMYCIN 1,000 MG VIAL (RESTRICTED TO ID ONLY) IVPB ONE (10:15)
[2019-09-12] MEDS ORDERED: ceFAZolin SODIUM 1 GM VIAL IVPB ONE (10:43)
--- NOTE | 2019-09-12 11:06 | OP ---
Operative Note - Note: Operative Date: 09/12/19 ([facility]) Pre-Operative Diagnosis: left periprosthetic distal femur fx Operation: left revision tkr, distal femur replacement Post-Operative Diagnosis: Same as Pre-op Surgeon: Michoacano Sr Chief Radiologic Technologist: Ming Dao Anesthesiologist/SAP ABAP DEVELOPER: Manjit Porter Anesthesia: Spinal, Local Specimens Removed: bone fragments, TKR prosthesis Estimated Blood Loss (mls): 50 (tourniquet)
[2019-09-12] MEDS ORDERED: LACTATED RINGERS SOLUTION 1,000 ML IV SCH ×2 (11:15→12:51)
[2019-09-12] MEDS ORDERED: MORPHINE SULFATE 2 MG/ML VIAL IVPUSH PRN (12:51)
[2019-09-12] MEDS ORDERED: IPRATROPIUM BR 0.02% 0.5 MG/2.5 ML VIAL.NEB. NEB PRN (12:51)
[2019-09-12] MEDS ORDERED: traMADol HCL 50 MG TABLET PO PRN (12:53)
[2019-09-12] MEDS ORDERED: oxyCODONE HCL 5 MG TABLET PO PRN ×2 (12:53)
[2019-09-12] MEDS ORDERED: ONDANSETRON 4 MG/2 ML VIAL IVPUSH PRN (12:53)
[2019-09-12] MEDS: ACETAMINOPHEN 325 MG TABLET (FP) PO SCH ×2 (13:40→18:14)
[2019-09-12] MEDS ORDERED: CEFAZOLIN 3 GM in DEXTROSE 5%-WATER - 100 ML IVPB SCH (16:00)
[2019-09-12] MEDS: CEFAZOLIN 3 GM in DEXTROSE 5%-WATER - 100 ML IVPB SCH (16:05)
[2019-09-12] MEDS ORDERED: PT OWN MED DRAWER 7, Y5N ONE (16:51)
[2019-09-12] MEDS: oxyCODONE HCL 10 MG SUSTAINED ACTING TABLET PO SCH (21:45)
[2019-09-13] MEDS ORDERED: PT OWN MED DRAWER 7, Y5N ONE (00:13)
[2019-09-13] MEDS: CEFAZOLIN 3 GM in DEXTROSE 5%-WATER - 100 ML IVPB SCH (00:15)
[2019-09-13] MEDS: ACETAMINOPHEN 325 MG TABLET (FP) PO SCH ×4 (00:16→18:16)
[2019-09-13] MEDS: SODIUM CHLORIDE 1,000 ML IV SCH ×3 (04:18→14:22)
--- NOTE | 2019-09-13 05:53 | PN ---
Progress Note, Physician Chief Complaint: Note for 09/12/19 Left femur fracture History of Present Illness: Pt in OR - Current Medication List Current Medications: Active Medications Acetaminophen (Tylenol -) 650 mg PO Q6H [facility] Stop: 09/15/19 12:59 Last Admin: 09/13/19 00:16 Dose: 650 mg Albuterol Sulfate (Ventolin 0.083% Nebulizer Soln -) 1 amp NEB RQID PRN PRN Reason: SHORT OF BREATH/WHEEZING Aspirin (Asa -) 325 mg PO DAILY@0800 [facility] Fentanyl (Sublimaze Injection -) 50 mcg IVPUSH [id number] PRN PRN Reason: PAIN-PACU ORDER X 4 DOSES ONLY Heparin Sodium (Porcine) (Heparin -) 5,000 unit SQ TID [facility] Last Admin: 09/12/19 21:45 Dose: 5,000 unit Ceftriaxone Sodium 1 gm/ (Dextrose) 50 mls @ 100 mls/hr IVPB DAILY [facility]; Protocol Lactated Ringer's (Lactated Ringers Solution) 1,000 mls @ 125 mls/hr IV ASDIR [facility] Stop: 09/13/19 06:00 Last Admin: 09/12/19 13:40 Dose: Not Given Sodium Chloride (Normal Saline -) 1,000 mls @ 75 mls/hr IV ASDIR [facility] Last Admin: 09/13/19 04:18 Dose: 75 mls/hr Ipratropium [place] (Atrovent 0.02% Nebulizer -) 1 amp NEB Q6H PRN PRN Reason: WHEEZING Morphine Sulfate (Morphine Sulfate) 1 mg IVPUSH Q6H PRN PRN Reason: PAIN LEVEL 6-10 Ondansetron HCl (Zofran Injection) 4 mg IVPUSH Q6H PRN PRN Reason: NAUSEA AND/OR VOMITING Oxycodone HCl (Roxicodone -) 5 mg PO Q3H PRN PRN Reason: PAIN LEVEL 4 - 6 Last Admin: 09/12/19 18:13 Dose: 5 mg Oxycodone HCl (Roxicodone -) 10 mg PO Q3H PRN PRN Reason: PAIN LEVEL 7 - 10 Oxycodone HCl (Oxycontin -) 10 mg PO BID [facility] Stop: 09/15/19 12:54 Last Admin: 09/12/19 21:45 Dose: 10 mg Tramadol HCl (Ultram -) 50 mg PO Q3H PRN PRN Reason: PAIN LEVEL 1 - 3 - Objective Vital Signs: Vital Signs Temperature 99.0 F 09/13/19 02:00 Pulse Rate 95 H 09/13/19 02:00 Respiratory Rate 20 09/13/19 02:00 Blood Pressure 156/85 09/13/19 02:00 O2 Sat by Pulse Oximetry (%) 98 09/12/19 20:51 Labs: CBC, BMP 09/11/19 07:15 09/11/19 07:15 INR, PTT INR 1.03 (0.83-1.09) 09/10/19 22:57 Problem List - Problems (1) UTI (urinary tract infection) Assessment/Plan: -UA+ Nitrites -UC : Microbiology 09/11/19 13:08 Blood - Peripheral Venous Blood Culture - Preliminary NO GROWTH OBTAINED AFTER 24 HOURS, INCUBATION TO CONTINUE FOR 4 DAYS. 09/11/19 13:04 Blood - Peripheral Venous Blood Culture - Preliminary NO GROWTH OBTAINED AFTER 24 HOURS, INCUBATION TO CONTINUE FOR 4 DAYS. 09/11/19 01:45 Urine - Urine Clean Catch Urine Culture - Preliminary Lactose Fermenting Neg Bacilli -Start Rocephin -ID consult Problems reviewed: Yes Code(s): N39.0 - URINARY TRACT INFECTION, SITE NOT SPECIFIED (2) Femur fracture, left Assessment/Plan: -orthopedic consult -Left femur fracture:Comminuted distal femoral fracture just proximal to the knee replacement. -In OR for surgery -Post op PT -SNF upon discharge Problems reviewed: Yes Code(s): S72.92XA - UNSP FRACTURE OF LEFT FEMUR, INIT ENCNTR FOR CLOSED FRACTURE Assessment/Plan see problem list
[2019-09-13] MEDS: HEPARIN NA (PORCINE) 5,000 UNITS/ML 1ML VIAL SQ SCH ×3 (06:25→21:22)
[2019-09-13] MEDS ORDERED: ASPIRIN 325 MG TABLET PO SCH (08:00)
--- NOTE | 2019-09-13 08:09 | OP ---
DATE OF OPERATION: 09/12/2019 PREOPERATIVE DIAGNOSIS: Periprosthetic left distal femur fracture. POSTOPERATIVE DIAGNOSIS: Periprosthetic left distal femur fracture. PROCEDURE PERFORMED: Revision left total knee replacement with distal femoral replacement. SURGICAL ATTENDING: Michoacano Sr MD SYSTEMS ADMINISTRATOR: LUZMARIA Nichols ANESTHESIA: Regional and spinal. CLOSURE: GMRS components from [place], with a standard femur with a 30 body, a 13 x 127-mm femoral connor, S2 tibia with a 16 spacer, and a 13 x 80-mm tibial connor, number 1 Vicryl on the fascia, 0 and 2-0 subcutaneous, 3-0 Monocryl subcuticular, with skin glue for the skin. COMPLICATIONS: None. CONDITION: To the recovery room in stable condition. DESCRIPTION OF PROCEDURE: The patient was taken to the operating room on September 12, 2017. Regional and spinal anesthesia were administered by the anesthesiologist. IV Kefzol was administered prophylactically prior to the case. A well-padded pneumatic tourniquet was placed on the left proximal thigh. The left lower extremity was prepped and draped in the usual sterile fashion. Utilizing the incision from the previous index total knee replacement, which was more medial than usual, we extended that incision both proximally and distally, curving towards the midline. Hemostasis was achieved with Bovie cautery. Sharp dissection was carried down to the level of the extensor mechanism. A good portion of the quadriceps muscle had converted into fat, but there was still some good muscle tissue in this area. A medial parapatellar arthrotomy was then performed, retracting the patella laterally. The fracture was seen to be displaced and crushed in with bone displaced and minimal bone left on the femoral component. We did subperiosteal dissection the skeletonize the distal femur and removed it from the knee. The distal femur was cut to be flush. The distance from the polyethylene to the cut surface of the femur was measured and we replaced just that amount of bone with a standard femur with a 30 extension. The intramedullary canal was reamed until a 15-mm connor had some chatter. So then we decided to trial with a 13-mm connor. We placed that in the knee and that achieved excellent extension and tension of the soft tissues. Next, our attention was directed to the tibia. Osteotomes were used to go underneath the tibial baseplate. I then malleted from underneath. The tibial baseplate popped off easily. The entire cement mantle was left on the tibia. The bone was resected just below the cement mantle. The intramedullary canal was reamed with a fat Boss Reamer, and then multiple intramedullary reamers until a 15-mm reamer achieved some chatter distally. A trial reduction with an S2 stem with the appropriate external rotation and a 16-mm insert achieved excellent extension and excellent flexion, with excellent tension of the soft tissues. Rotations of the femur and the tibia were marked. A keel was made in the tibia. The trial components were removed. The knee was [id number] copiously. Cement restrictors were placed up the femur and down the tibia. The real components were then cemented in a staggered formation, with 2 bags for the tibia and then another 2 bags of antibiotic cement for the femur, allowing pressurization of the components. All excess cement was removed. The knee was taken through a range of motion and found stable in full extension and full flexion, with excellent tracking of the patella and excellent stability. The patella was visualized to be intact and was left in situ. Vancomycin powder was placed in the arthrotomy. The medial parapatellar arthrotomy was then closed using 1 Vicryl. The soft tissue was pulse antibiotic irrigated and closed in layers with 0 and 2-0 Vicryl, and 3-0 Monocryl subcuticular, with skin glue for the skin. A sterile pressure dressing was applied. The patient was awakened from anesthesia and transferred to the recovery room in stable condition. No complication. Estimated blood loss was negligible. Tourniquet time was approximately 100 minutes. Michael [id number]
[2019-09-13] MEDS ORDERED: DEXTROSE 5%-WATER - 50 ML IVPB ONE (08:45)
[2019-09-13] MEDS ORDERED: cefTRIAXone SODIUM 1 GM VIAL ONE (08:45)
[2019-09-13] MEDS: ASPIRIN 325 MG TABLET PO SCH (08:47)
[2019-09-13 08:55] LABS: BASO % 0.4 % (0-2.0); EOS % 0.1 % (0-4.5); HEMATOCRIT 33.8 % (32.4-45.2); HEMOGLOBIN 11.2 GM/dL (10.7-15.3); LYMPH % 9.4 % (8-40); MCH 28.2 pg (25.7-33.7); MCHC 33.2 g/dl (32.0-36.0); MEAN PLT VOLUME 9.2 fl (7.5-11.1); MONO % 10.1 % (3.8-10.2); PLATELET COUNT 190 K/MM3 (134-434); RBC 3.98 M/mm3 (3.60-5.2); RDW 13.7 % (11.6-15.6); WHITE BLOOD COUNT 18.2 K/mm3 (4.0-10.0)
[2019-09-13] MEDS: oxyCODONE HCL 10 MG SUSTAINED ACTING TABLET PO SCH ×2 (09:14→21:21)
--- NOTE | 2019-09-13 09:18 | PN ---
Progress Note (short form) - Note Progress Note: Pt seen and examined. She is very comfortable on POD #1 s/p left knee revision TKR surgery. She has no complaints. AVSS H/H stable LLE Grossly NVI Goos ROM with no pain at the foot and ankle. Good ROM at the left knee and hip, with some pain in the left knee. Dressing CDI Imp Doing very well, stable, on POD #1. Rec DC planning, SNF/NH facility P.T., light PWB left leg F/u with Dr Sr in 1-2 weeks
[2019-09-13 09:36] LABS: ALBUMIN 2.8 g/dl (3.4-5.0); BILIRUBIN,TOTAL 0.7 mg/dL (0.2-1); BLOOD UREA NITROGEN 10.1 mg/dL (7-18); CALCIUM 8.2 mg/dL (8.5-10.1); CREATININE 0.8 mg/dL (0.55-1.3); POTASSIUM 4.1 mmol/L (3.5-5.1)
--- NOTE | 2019-09-13 09:58 | PN ---
Progress Note, Physician Chief Complaint: Left Femur Fracture UTI History of Present Illness: Previous notes and events reviewed awake and alert NAD sts pain is controlled denies BM but sts passing flatus denies chest pain or SOB - Current Medication List Current Medications: Active Medications Acetaminophen (Tylenol -) 650 mg PO Q6H [facility] Stop: 09/15/19 12:59 Last Admin: 09/13/19 06:25 Dose: 650 mg Albuterol Sulfate (Ventolin 0.083% Nebulizer Soln -) 1 amp NEB RQID PRN PRN Reason: SHORT OF BREATH/WHEEZING Aspirin (Asa -) 325 mg PO DAILY@0800 [facility] Last Admin: 09/13/19 08:47 Dose: 325 mg Fentanyl (Sublimaze Injection -) 50 mcg IVPUSH [id number] PRN PRN Reason: PAIN-PACU ORDER X 4 DOSES ONLY Heparin Sodium (Porcine) (Heparin -) 5,000 unit SQ TID [facility] Last Admin: 09/13/19 06:25 Dose: 5,000 unit Ceftriaxone Sodium 1 gm/ (Dextrose) 50 mls @ 100 mls/hr IVPB DAILY [facility]; Protocol Last Admin: 09/13/19 09:15 Dose: 100 mls/hr Sodium Chloride (Normal Saline -) 1,000 mls @ 75 mls/hr IV ASDIR [facility] Last Admin: 09/13/19 04:18 Dose: 75 mls/hr Ipratropium [place] (Atrovent 0.02% Nebulizer -) 1 amp NEB Q6H PRN PRN Reason: WHEEZING Morphine Sulfate (Morphine Sulfate) 1 mg IVPUSH Q6H PRN PRN Reason: PAIN LEVEL 6-10 Ondansetron HCl (Zofran Injection) 4 mg IVPUSH Q6H PRN PRN Reason: NAUSEA AND/OR VOMITING Oxycodone HCl (Roxicodone -) 5 mg PO Q3H PRN PRN Reason: PAIN LEVEL 4 - 6 Last Admin: 09/12/19 18:13 Dose: 5 mg Oxycodone HCl (Roxicodone -) 10 mg PO Q3H PRN PRN Reason: PAIN LEVEL 7 - 10 Oxycodone HCl (Oxycontin -) 10 mg PO BID [facility] Stop: 09/15/19 12:54 Last Admin: 09/13/19 09:14 Dose: 10 mg Tramadol HCl (Ultram -) 50 mg PO Q3H PRN PRN Reason: PAIN LEVEL 1 - 3 - Objective Vital Signs: Vital Signs Temperature 98.2 F 09/13/19 09:35 Pulse Rate 89 09/13/19 09:35 Respiratory Rate 20 09/13/19 09:35 Blood Pressure 141/87 09/13/19 09:35 O2 Sat by Pulse Oximetry (%) 98 09/13/19 09:00 Constitutional: Yes: No Distress, Calm Eyes: Yes: Conjunctiva Clear HENT: Yes: Atraumatic Cardiovascular: Yes: Regular Rate and Rhythm Respiratory: Yes: Regular, CTA Bilaterally Gastrointestinal: Yes: Normal Bowel Sounds, Soft, Abdomen, Obese Musculoskeletal: Yes: Muscle Weakness Extremities: Yes: WNL Edema: No Wound/Incision: Yes: Dressing Dry and Intact (L knee) Neurological: Yes: Alert, Oriented Psychiatric: Yes: Alert, Oriented Labs: CBC, BMP 09/13/19 08:30 09/13/19 08:30 INR, PTT INR 1.03 (0.83-1.09) 09/10/19 22:57 Microbiology 09/11/19 01:45 Urine - Urine Clean Catch Urine Culture - Final Escherichia Coli 09/11/19 13:08 Blood - Peripheral Venous Blood Culture - Preliminary NO GROWTH OBTAINED AFTER 24 HOURS, INCUBATION TO CONTINUE FOR 4 DAYS. 09/11/19 13:04 Blood - Peripheral Venous Blood Culture - Preliminary NO GROWTH OBTAINED AFTER 24 HOURS, INCUBATION TO CONTINUE FOR 4 DAYS. Problem List - Problems (1) Asthma Assessment/Plan: -Bronchodilators -O2 via NC prn -keep SpO2 >90% Problems reviewed: No Code(s): J45.909 - UNSPECIFIED ASTHMA, UNCOMPLICATED (2) Femur fracture, left Assessment/Plan: -Orthopedics on board -POD #1 L knee revision with TKR -pain control -PT -Incentive Spirometer -SNF upon discharge for Rehab -Tibia Xray shows comminuted distalfemoral fracture proximal to knee replacement Code(s): S72.92XA - UNSP FRACTURE OF LEFT FEMUR, INIT ENCNTR FOR CLOSED FRACTURE (3) Status post fall Assessment/Plan: -Fall precautions -PT -Tibia Xray shows comminuted distalfemoral fracture proximal to knee replacement Code(s): Z91.81 - HISTORY OF FALLING (4) UTI (urinary tract infection) Assessment/Plan: -ID on board -Leukocytosis -afebrile -Ceftriaxone -UC positive E.Coli -UA positive nitrite Code(s): N39.0 - URINARY TRACT INFECTION, SITE NOT SPECIFIED Assessment/Plan see problem list dvt ppx begin d/c planning for SNF for Ze[facility]
[2019-09-13] MEDS ORDERED: CEFTRIAXONE 1 GM in DEXTROSE 5%-WATER - 50 ML IVPB SCH (10:00)
--- NOTE | 2019-09-13 13:40 | PN ---
Progress Note (short form) - Note Progress Note: POD1 s/p left TKR revision under nerve block and spinal. Pt resting comfortably , says pain is well controlled. She is lying on her left side (surgical side) and says she has minimal pain. No anesthetic issues/complications noted.
[2019-09-13] MEDS: POLYETHYLENE GLYCOL 3350 119 GM BTL PO SCH (14:24)
--- NOTE | 2019-09-13 14:43 | PN ---
Progress Note, Physician History of Present Illness: POD #1 REVISION L TKR/ REPAIR L FEMUR FRACTURE NO COMPLAINTS DENIES DYSURIA NO FEVER/ CHILLS WBC ELEVATION 18K NOTED RECEIVED DOSE OF DECADRON YESTERDAY BC (-) URINE C/S ECOLI - Current Medication List Current Medications: Active Medications Acetaminophen (Tylenol -) 650 mg PO Q6H [facility] Stop: 09/15/19 12:59 Last Admin: 09/13/19 14:23 Dose: 650 mg Albuterol Sulfate (Ventolin 0.083% Nebulizer Soln -) 1 amp NEB RQID PRN PRN Reason: SHORT OF BREATH/WHEEZING Aspirin (Asa -) 325 mg PO DAILY@0800 [facility] Last Admin: 09/13/19 08:47 Dose: 325 mg Fentanyl (Sublimaze Injection -) 50 mcg IVPUSH [id number] PRN PRN Reason: PAIN-PACU ORDER X 4 DOSES ONLY Heparin Sodium (Porcine) (Heparin -) 5,000 unit SQ TID [facility] Last Admin: 09/13/19 14:22 Dose: 5,000 unit Ceftriaxone Sodium 1 gm/ (Dextrose) 50 mls @ 100 mls/hr IVPB DAILY [facility]; Protocol Last Admin: 09/13/19 09:15 Dose: 100 mls/hr Sodium Chloride (Normal Saline -) 1,000 mls @ 75 mls/hr IV ASDIR [facility] Last Admin: 09/13/19 14:22 Dose: 75 mls/hr Ipratropium Grace (Atrovent 0.02% Nebulizer -) 1 amp NEB Q6H PRN PRN Reason: WHEEZING Morphine Sulfate (Morphine Sulfate) 1 mg IVPUSH Q6H PRN PRN Reason: PAIN LEVEL 6-10 Ondansetron HCl (Zofran Injection) 4 mg IVPUSH Q6H PRN PRN Reason: NAUSEA AND/OR VOMITING Oxycodone HCl (Roxicodone -) 5 mg PO Q3H PRN PRN Reason: PAIN LEVEL 4 - 6 Last Admin: 09/12/19 18:13 Dose: 5 mg Oxycodone HCl (Roxicodone -) 10 mg PO Q3H PRN PRN Reason: PAIN LEVEL 7 - 10 Last Admin: 09/13/19 14:26 Dose: 10 mg Oxycodone HCl (Oxycontin -) 10 mg PO BID [facility] Stop: 09/15/19 12:54 Last Admin: 09/13/19 09:14 Dose: 10 mg Polyethylene Glycol (Miralax (For Daily Use) -) 17 gm PO DAILY [place] Last Admin: 09/13/19 14:24 Dose: 17 gm Tramadol HCl (Ultram -) 50 mg PO Q3H PRN PRN Reason: PAIN LEVEL 1 - 3 - Objective Vital Signs: Vital Signs Temperature 99.1 F 09/13/19 14:08 Pulse Rate 78 09/13/19 14:08 Respiratory Rate 20 09/13/19 09:35 Blood Pressure 136/78 09/13/19 14:08 O2 Sat by Pulse Oximetry (%) 98 09/13/19 09:00 Constitutional: Yes: No Distress Eyes: Yes: Conjunctiva Clear Cardiovascular: Yes: Regular Rate and Rhythm, S1, S2 Respiratory: Yes: CTA Bilaterally Gastrointestinal: Yes: Normal Bowel Sounds, Soft. No: Tenderness Extremities: Yes: Other (L LE DRESSING IN PLACE) Labs: CBC, BMP 09/13/19 08:30 09/13/19 08:30 INR, PTT INR 1.03 (0.83-1.09) 09/10/19 22:57 Assessment/Plan POD #1 REVISION L TKR/ REPAIR OF L FEMUR FRACTURE UTI LEUKOCYTOSIS LIKELY STEROID-INDUCED SUBSTITUTE CEFTIN BID X 7DAYS
[2019-09-13] MEDS: ALBUTEROL SO4 0.083% IH SOL 2.5 MG/3 ML VIAL.NEB. NEB PRN (17:20)
[2019-09-13] MEDS ORDERED: ACETAMINOPHEN 325 MG TABLET (FP) PO ONE (21:11)
[2019-09-13] MEDS: CEFUROXIME AXETIL 500 MG TABLET PO SCH (21:21)
[2019-09-14] MEDS: ACETAMINOPHEN 325 MG TABLET (FP) PO SCH ×2 (00:12→06:01)
[2019-09-14] MEDS: HEPARIN NA (PORCINE) 5,000 UNITS/ML 1ML VIAL SQ SCH (06:01)
[2019-09-14] MEDS: ALBUTEROL SO4 0.083% IH SOL 2.5 MG/3 ML VIAL.NEB. NEB PRN (07:25)
[2019-09-14 08:22] LABS: HEMATOCRIT 30.4 % (32.4-45.2); HEMOGLOBIN 10.1 GM/dL (10.7-15.3); MCH 28.5 pg (25.7-33.7); MCHC 33.4 g/dl (32.0-36.0); MEAN CELL VOLUME 85.5 fl (80-96); MEAN PLT VOLUME 9.2 fl (7.5-11.1); PLATELET COUNT 199 K/MM3 (134-434); RBC 3.55 M/mm3 (3.60-5.2); RDW 13.6 % (11.6-15.6); WHITE BLOOD COUNT 16.8 K/mm3 (4.0-10.0)
[2019-09-14 08:53] LABS: ALBUMIN 2.6 g/dl (3.4-5.0); BILIRUBIN,TOTAL 1.1 mg/dL (0.2-1); CALCIUM 8.2 mg/dL (8.5-10.1); CREATININE 0.6 mg/dL (0.55-1.3); POTASSIUM 3.8 mmol/L (3.5-5.1); TOT PROT 5.7 g/dl (6.4-8.2)
[2019-09-14] MEDS: ASPIRIN 325 MG TABLET PO SCH (09:00)
[2019-09-14] MEDS: oxyCODONE HCL 10 MG SUSTAINED ACTING TABLET PO SCH (09:00)
[2019-09-14] MEDS: CEFUROXIME AXETIL 500 MG TABLET PO SCH (09:00)
[2019-09-14] MEDS: POLYETHYLENE GLYCOL 3350 119 GM BTL PO SCH (09:05)
[2019-09-14] MEDS: SODIUM CHLORIDE 1,000 ML IV SCH (09:05)
[2019-09-14 09:24] VITALS: BP 130/69; PULSE 100; TEMP 98.1
--- NOTE | 2019-09-14 10:11 | PN ---
Progress Note (short form) - Note Progress Note: Ortho Pt seen and examined s/p left revision tkr, distal femur replacement pod #2 Selected Entries 09/14/19 09:21 Temperature 98.1 F Pulse Rate 100 H Respiratory 19 Rate Blood Pressure 130/69 Laboratory Tests 09/14/19 07:55 WBC 16.8 H Hgb 10.1 L Hct 30.4 L Plt Count 199 dressing c/d/i, calf soft, nt rom 5-70, nvi a/p PT dvt ppx pain control ok to d/c from ortho pov
--- NOTE | 2019-09-14 11:27 | DS ---
Physical Examination Vital Signs: Vital Signs Temperature 98.1 F 09/14/19 09:21 Pulse Rate 100 H 09/14/19 09:21 Respiratory Rate 19 09/14/19 09:21 Blood Pressure 130/69 09/14/19 09:21 O2 Sat by Pulse Oximetry (%) 97 09/14/19 09:00 Findings/Remarks: Laboratory Results - last 24 hr 09/14/19 09/14/19 07:55 07:55 WBC 16.8 H RBC 3.55 L Hgb 10.1 L Hct 30.4 L MCV 85.5 MCH 28.5 MCHC 33.4 RDW 13.6 Plt Count 199 MPV 9.2 Sodium 138 Potassium 3.8 Chloride 105 Carbon Dioxide 27 Anion Gap 6 L BUN 11.0 Creatinine 0.6 Est GFR (CKD-EPI)AfAm 114.02 Est GFR (CKD-EPI)NonAf 98.38 Random Glucose 121 H Calcium 8.2 L Total Bilirubin 1.1 H AST 26 ALT 23 Alkaline Phosphatase 111 Total Protein 5.7 L Albumin 2.6 L Active Medications Generic Name Dose Route Start Last Admin Trade Name Freq PRN Reason Stop Dose Admin Acetaminophen 650 mg 09/12/19 13:00 09/14/19 06:01 Tylenol - PO 09/15/19 12:59 650 mg Q6H [place] Administration Albuterol Sulfate 1 amp 09/12/19 12:51 09/14/19 07:25 Ventolin 0.083% Nebulizer Soln - NEB 1 amp RQID PRN Administration SHORT OF BREATH/WHEEZING Aspirin 325 mg 09/13/19 08:00 09/14/19 09:00 Asa - PO 325 mg DAILY@0800 [place] Administration Cefuroxime Axetil 500 mg 09/13/19 22:00 09/14/19 09:00 Ceftin - PO 500 mg BID [place] Administration Fentanyl 50 mcg 09/12/19 12:53 Sublimaze Injection - IVPUSH [id number] PRN PAIN-PACU ORDER X 4 DOSES ONLY Heparin Sodium (Porcine) 5,000 unit 09/12/19 14:00 09/14/19 06:01 Heparin - SQ 5,000 unit TID [place] Administration Sodium Chloride 1,000 mls @ 75 mls/hr 09/12/19 12:51 09/14/19 09:05 Normal Saline - IV 75 mls/hr ASDIR [place] Administration Ipratropium Clawson 1 amp 09/12/19 12:51 09/14/19 07:25 Atrovent 0.02% Nebulizer - NEB 1 amp Q6H PRN Administration WHEEZING Morphine Sulfate 1 mg 09/12/19 12:51 Morphine Sulfate IVPUSH Q6H PRN PAIN LEVEL 6-10 Ondansetron HCl 4 mg 09/12/19 12:53 Zofran Injection IVPUSH Q6H PRN NAUSEA AND/OR VOMITING Oxycodone HCl 5 mg 09/12/19 12:53 09/12/19 18:13 Roxicodone - PO 5 mg Q3H PRN Administration PAIN LEVEL 4 - 6 Oxycodone HCl 10 mg 09/12/19 12:53 09/13/19 14:26 Roxicodone - PO 10 mg Q3H PRN Administration PAIN LEVEL 7 - 10 Oxycodone HCl 10 mg 09/12/19 22:00 09/14/19 09:00 Oxycontin - PO 09/15/19 12:54 10 mg BID [place] Administration Polyethylene Glycol 17 gm 09/13/19 10:45 09/14/19 09:05 Miralax (For Daily Use) - PO 17 gm DAILY [place] Administration Tramadol HCl 50 mg 09/12/19 12:53 Ultram - PO Q3H PRN PAIN LEVEL 1 - 3 Microbiology 09/11/19 13:08 Blood - Peripheral Venous Blood Culture - Preliminary NO GROWTH OBTAINED AFTER 48 HOURS, INCUBATION TO CONTINUE FOR 3 DAYS. 09/11/19 13:04 Blood - Peripheral Venous Blood Culture - Preliminary NO GROWTH OBTAINED AFTER 48 HOURS, INCUBATION TO CONTINUE FOR 3 DAYS. 09/11/19 01:45 Urine - Urine Clean Catch Urine Culture - Final Escherichia Coli Constitutional: Yes: No Distress, Calm Eyes: Yes: Conjunctiva Clear HENT: Yes: Atraumatic Cardiovascular: Yes: Regular Rate and Rhythm Respiratory: Yes: Regular, CTA Bilaterally Gastrointestinal: Yes: Normal Bowel Sounds, Soft Musculoskeletal: Yes: Muscle Weakness Extremities: Yes: WNL Edema: No Wound/Incision: Yes: Dressing Dry and Intact Neurological: Yes: Alert, Oriented Psychiatric: Yes: Alert, Oriented Labs: CBC, BMP 09/14/19 07:55 09/14/19 07:55 Discharge Summary Problems reviewed: Yes Reason For Visit: FRACTURE OF LEFT FEMUR Current Active Problems Asthma (Acute) Femur fracture, left (Acute) Knee pain (Acute) Status post fall (Acute) UTI (urinary tract infection) (Acute) Hospital Course: 59 year old female with PMH asthma, left knee replacement (X4 years ago) arrived to ED s/p fall with pain,swelling to left knee. According to son at bedside patient was walking in her hallway when " she felt her knee gave out" which caused patient to lunge forward and hit her knee against the wall. The knee bent in twisting motion. Patient denies hit her head, no LOC, headache, dizziness, syncope. Patient denies CP/SOB, N/V, neck pain, back pain, upper extremity pain. Patient is POD #2 of revision L TKR and repair of left femur fracture. (+)BM since surgery. Pain is controlled. Will be discharged to SNF for rehab and physical therapy. - Instructions Diet, Activity, Other Instructions: Follow up with PMD 1 week after discharge Follow up with Orthopedic Dr Sr 2 weeks after discharge for surgical follow up continue with medication as prescribed Ceftin 500mg BID x 7 days for treatment of UTI Fall Precautions return to ER if severe pain, respiratory distress, chest pain, AMS Referrals: Michoacano Sr MD [Staff Physician] - Tiffany Snow [Primary Care Provider] - [facility] - Home Medications Comprehensive Discharge Medication List: Ambulatory Orders Albuterol Sulfate Inhaler - [Ventolin HFA Inhaler -] 1 - 2 inh PO Q4H #1 inhaler 10/03/18 Fluticasone Propionate [Flovent Diskus] 100 mcg IH ASDIR 10/03/18 Acetaminophen [Tylenol .Regular Strength -] 650 mg PO Q6H tablet 09/14/19 Albuterol 0.083% Nebulizer Ana Maria [Ventolin 0.083% Nebulizer Soln -] 1 amp NEB RQID PRN amp 09/14/19 Aspirin [ASA -] 325 mg PO DAILY@0800 tablet 09/14/19 Cefuroxime Axetil [Ceftin -] 500 mg PO BID 7 Days tablet 09/14/19 Heparin - 5,000 unit SQ TID vial 09/14/19 Ipratropium 0.02% Nebulizer [Atrovent 0.02% Nebulizer -] 1 amp NEB Q6H PRN amp 09/14/19 Polyethylene Glycol 3350 [Miralax 119 gm Btl -] 17 gm PO DAILY bottle 09/14/19 oxyCODONE HCL [Roxicodone -] 10 mg PO Q6H PRN tablet MDD 4 09/14/19 oxyCODONE SR [Oxycontin] 10 mg PO BID tab.er.12h MDD 2 09/14/19 traMADol HCL [Ultram -] 50 mg PO Q8H PRN tablet MDD 3 09/14/19
--- NOTE | 2019-09-14 18:11 | PATH ---
Surgical Pathology Report Patient Name: BLANKA MCCLAIN [facility]. Rec. #: [id number] /Age/Gender: 1960 (Age: 59) / F Account: [id number] Location: [address] [place] [address] Taken: 09/12/2019 Received: 09/12/2019 Reported: 09/14/2019 Physicians: Michoacano Sr M.D. Specimen(s) Received LEFT FEMUR AND HARDWARE Clinical History Fracture of femur left Final Diagnosis LEFT FEMUR WITH PROSTHESIS AND HARDWARE, RESECTION: PORTIONS OF BONE WITH FOCAL INTERTRABECULAR HEMORRHAGE, CONSISTENT WITH CLINICAL HISTORY OF FRACTURE. HARDWARE, CONSISTENT WITH KNEE PROSTHESIS. GROSS EXAMINATION ONLY. Electronically Signed Naomi Fan M.D. Gross Description Received in formalin labeled "left femur with prosthesis and hardware," are 3 portions of white plastic and velasquez metallic hardware ranging from 6.8-7.0 cm in greatest dimension, consistent with a knee prosthesis. The largest portion displays attached, focally hemorrhagic, bone. Separately received within the same container is a 5.5 x 5.0 x 3.5 cm aggregate of additional hemorrhagic portions of bone. Chief Console Operator bone is submitted in one cassette, following decalcification. /09/13/2019 saudi09/13/2019
== END 2019-09-14 11:53 | DRG 467 ==
LOC: JER 22:23 → JERBED 09-11 00:44 → J6S 09-11 02:37
PROVIDERS: ADMIT Family Medicine; ATTEND Family Medicine
PROC: 0SRD0J9 Replacement of Left Knee Joint with Synthetic Substitute, Cemented, Open Approach (ICD-10-PCS; 2019-09-12)
PROC: 0SPD0JZ Removal of Synthetic Substitute from Left Knee Joint, Open Approach (ICD-10-PCS; principal; 2019-09-12 08:00)
DX: M97.12XA Periprosthetic fracture around internal prosthetic left knee joint, initial encounter (principal); N39.0 Urinary tract infection, site not specified; Z68.41 Body mass index [BMI] 40.0-44.9, adult; J45.909 Unspecified asthma, uncomplicated; B96.20 Unspecified Escherichia coli [E. coli] as the cause of diseases classified elsewhere; E66.9 Obesity, unspecified; W18.39XA Other fall on same level, initial encounter; Y92.098 Other place in other non-institutional residence as the place of occurrence of the external cause; Z96.652 Presence of left artificial knee joint; Z91.81 History of falling; D72.829 Elevated white blood cell count, unspecified
CPT/HCPCS: 36415; 71045-TC-FY; 72170-TC-FY; 73552-TC-LT-FY; 73560-TC-LT-FY; 73562-TC-LT-FY; 73590-TC-LT-FY; 80048; 80053; 81003; 85025; 85027; 85610; 85730; 86850; 86900; 86901; 87040; 87086; 87186; 88305-TC; 88311-TC; 93005; 93010; 94010; 94640; 94760; 97116-GP; 99284-25; J0131; J1644; J7030

== ENCOUNTER 2020-12-28 12:36 | Emergency (ER) | payer OTHER ==
[2020-12-28 12:41] VITALS: BP 129/72; PULSE 61; TEMP 97.8; BMI 35.4
[2020-12-28] MEDS ORDERED: KETOROLAC TROMETHAMINE 30 MG/1 ML VIAL IM ONE (13:39)
== END 2020-12-28 14:01 | disposition home or self-care (01) ==
LOC: JERFT 12:36
PROC: 3E0233Z Introduction of Anti-inflammatory into Muscle, Percutaneous Approach (ICD-10-PCS; principal; 2020-12-28)
DX: M25.562 Pain in left knee (principal)
CPT/HCPCS: 73562-TC-LT-FY; 99284-25